=== PATIENT | female | born 2000 | race Hispanic/Latino ===

== ENCOUNTER → 2024-10-21 08:09 | Outpatient (REF) | payer BC, SELFPAY | LOC: WDC 08:09 | PROVIDERS: ATTENDING PHYSICIAN Student in an Organized Health Care Education/Training Program | DX: R92.8 Other abnormal and inconclusive findings on diagnostic imaging of breast (principal) | CPT/HCPCS: 76642 ==

== ENCOUNTER → 2024-11-03 07:37 | Outpatient (REF) | payer BC, SELFPAY ==
--- NOTE | 2024-11-03 14:51 | OID.BR.INTR ---
[facility]igator - Initial
- -
Date of Contact: 11/03/24
Met with patient. Will follow up as needed per protocol.
== END ==
LOC: WDC 07:37
PROVIDERS: ATTENDING PHYSICIAN Student in an Organized Health Care Education/Training Program
DX: N63.11 Unspecified lump in the right breast, upper outer quadrant (principal)
CPT/HCPCS: 88305; 19083; 88342; 88360